=== PATIENT | female | born 1940 | race Caucasian/White ===

== ENCOUNTER 2023-05-19 16:05 | Inpatient (IN) | payer OTHER, MEDICARE ==
[2023-05-19 18:16] LABS: BASO % 0.9 % (0-2.0); EOS % 2.7 % (0-4.5); HEMATOCRIT 38.5 % (32.4-45.2); HEMOGLOBIN 13.2 GM/dL (10.7-15.3); MCH 30.1 pg (25.7-33.7); MCHC 34.4 g/dl (32.0-36.0); MEAN CELL VOLUME 87.4 fl (80-96); MEAN PLT VOLUME 9.7 fl (7.5-11.1); MONO % 9.3 % (3.8-10.2); NEUT % 73.1 % (42.8-82.8); PLATELET COUNT 211 10^3/uL (134-434); RDW 14.2 % (11.6-15.6); WHITE BLOOD COUNT 8.7 K/mm3 (4.0-10.0)
[2023-05-19 18:26] LABS: ACTIVATED PTT 33.2 SECONDS (25.2-36.5)
[2023-05-19 18:32] LABS: POTASSIUM 3.7 mmol/L (3.5-5.1)
[2023-05-19 18:34] LABS: BLOOD UREA NITROGEN 19.8 mg/dL (7-18); CALCIUM 9.4 mg/dL (8.5-10.1)
[2023-05-19 18:35] LABS: ALBUMIN 3.9 g/dl (3.4-5.0)
[2023-05-19 18:38] LABS: CREATININE 0.9 mg/dL (0.55-1.3)
[2023-05-19 18:39] LABS: BILIRUBIN,TOTAL 0.9 mg/dL (0.2-1); TOT PROT 6.8 g/dl (6.4-8.2)
[2023-05-19 18:40] LABS: INR 1.05 (0.83-1.09); PROTHROMBIN TIME (PATIENT) 12.2 SEC (9.7-13.0)
[2023-05-19] MEDS ORDERED: ACETAMINOPHEN 325 MG TABLET (FP) PO PRN (19:45)
[2023-05-19] MEDS ORDERED: DEXAMETHASONE SOD PHOSPHATE 4 MG/1 ML VIAL ONE (20:07)
[2023-05-19] MEDS: DEXAMETHASONE SOD PHOSPHATE 4 MG/1 ML VIAL IVPUSH SCH (21:02)
[2023-05-19] MEDS ORDERED: ROSUVASTATIN CA 5 MG TABLET ONE (21:47)
[2023-05-19] MEDS ORDERED: CARVEDILOL 12.5 MG TABLET (FP) ONE (21:48)
[2023-05-19] MEDS: CARVEDILOL 25 MG TABLET (FP) PO SCH (21:59)
[2023-05-19] MEDS: ROSUVASTATIN CA 10 MG TABLET PO SCH (21:59)
[2023-05-19] MEDS: INSULIN SLIDING SCALE (NOVOLOG) 1 VIAL SQ SCH (22:11)
[2023-05-20] MEDS ORDERED: DEXAMETHASONE SOD PHOSPHATE 4 MG/1 ML VIAL ONE ×2 (02:00→10:17)
[2023-05-20] MEDS: DEXAMETHASONE SOD PHOSPHATE 4 MG/1 ML VIAL IVPUSH SCH ×3 (02:08→18:30)
[2023-05-20] MEDS: INSULIN SLIDING SCALE (NOVOLOG) 1 VIAL SQ SCH ×4 (07:25→21:56)
[2023-05-20 07:52] LABS: POTASSIUM 4.2 mmol/L (3.5-5.1)
[2023-05-20 07:53] LABS: CALCIUM 9.1 mg/dL (8.5-10.1)
[2023-05-20 07:54] LABS: BLOOD UREA NITROGEN 16.5 mg/dL (7-18)
[2023-05-20 07:57] LABS: CREATININE 0.8 mg/dL (0.55-1.3)
[2023-05-20] MEDS ORDERED: PANTOPRAZOLE 40 MG TABLET PO SCH (10:00)
[2023-05-20] MEDS ORDERED: CARVEDILOL 12.5 MG TABLET (FP) ONE ×2 (10:16→21:48)
[2023-05-20] MEDS ORDERED: PANTOPRAZOLE 40 MG TABLET PO ONE (10:16)
[2023-05-20] MEDS: CARVEDILOL 25 MG TABLET (FP) PO SCH ×2 (10:17→21:56)
[2023-05-20] MEDS ORDERED: ACETAMINOPHEN 325 MG TABLET (FP) ONE (16:37)
[2023-05-20] MEDS ORDERED: ROSUVASTATIN CA 5 MG TABLET ONE (21:48)
[2023-05-20] MEDS: ROSUVASTATIN CA 10 MG TABLET PO SCH (21:56)
[2023-05-21] MEDS ORDERED: DEXAMETHASONE SOD PHOSPHATE 4 MG/1 ML VIAL ONE (02:09)
[2023-05-21] MEDS: DEXAMETHASONE SOD PHOSPHATE 4 MG/1 ML VIAL IVPUSH SCH ×3 (02:17→17:45)
[2023-05-21 06:17] VITALS: BMI 30.9
[2023-05-21] MEDS: INSULIN SLIDING SCALE (NOVOLOG) 1 VIAL SQ SCH ×4 (06:19→22:45)
[2023-05-21] MEDS: PANTOPRAZOLE 40 MG TABLET PO SCH (06:43)
[2023-05-21] MEDS ORDERED: CARVEDILOL 12.5 MG TABLET (FP) PO SCH (10:00)
[2023-05-21] MEDS ORDERED: FLU VACCINE (FLULAVAL) PF 60 MCG/0.5 ML SYRINGE 2023-2024 IM ONE (10:00)
[2023-05-21 15:35] VITALS: RESP 20
[2023-05-21] MEDS ORDERED: ARTIFICIAL TEARS (POLYVINYL ALCOHOL) OPTH DROPS OU PRN (22:32)
[2023-05-21] MEDS: CARVEDILOL 25 MG TABLET (FP) PO SCH (22:38)
[2023-05-21] MEDS: ASPIRIN COATED 81 MG TABLET.EC PO SCH (22:38)
[2023-05-21] MEDS: DEXAMETHASONE 4 MG TABLET (FP) PO SCH (22:38)
[2023-05-21] MEDS: ROSUVASTATIN CA 10 MG TABLET PO SCH (22:38)
[2023-05-22] MEDS: INSULIN SLIDING SCALE (NOVOLOG) 1 VIAL SQ SCH ×2 (06:35→11:43)
[2023-05-22] MEDS: PANTOPRAZOLE 40 MG TABLET PO SCH (06:40)
[2023-05-22 06:49] LABS: BASO % 0.6 % (0-2.0); HEMATOCRIT 37.2 % (32.4-45.2); HEMOGLOBIN 12.4 GM/dL (10.7-15.3); LYMPH % 7.6 % (8-40); MCH 29.5 pg (25.7-33.7); MCHC 33.3 g/dl (32.0-36.0); MEAN CELL VOLUME 88.4 fl (80-96); MEAN PLT VOLUME 9.8 fl (7.5-11.1); MONO % 6.2 % (3.8-10.2); NEUT % 85.6 % (42.8-82.8); PLATELET COUNT 198 10^3/uL (134-434); RBC 4.21 M/mm3 (3.60-5.2); RDW 13.7 % (11.6-15.6); WHITE BLOOD COUNT 9.2 K/mm3 (4.0-10.0)
[2023-05-22 07:08] LABS: POTASSIUM 4.2 mmol/L (3.5-5.1)
[2023-05-22 07:12] LABS: ALBUMIN 3.3 g/dl (3.4-5.0)
[2023-05-22 07:13] LABS: BLOOD UREA NITROGEN 23.5 mg/dL (7-18)
[2023-05-22 07:15] LABS: CREATININE 0.9 mg/dL (0.55-1.3)
[2023-05-22 07:17] LABS: BILIRUBIN,TOTAL 0.6 mg/dL (0.2-1); TOT PROT 6.2 g/dl (6.4-8.2)
[2023-05-22 08:26] VITALS: BP 146/92; PULSE 77; TEMP 98
[2023-05-22] MEDS: CARVEDILOL 25 MG TABLET (FP) PO SCH (11:11)
[2023-05-22] MEDS: DEXAMETHASONE 4 MG TABLET (FP) PO SCH (11:11)
[2023-05-22] MEDS: ASPIRIN COATED 81 MG TABLET.EC PO SCH (11:11)
== END 2023-05-22 13:55 | disposition home or self-care (01) | DRG 69 ==
LOC: JER 16:05 → JERBED 16:44 → J4W 05-21 06:27
PROVIDERS: ADMIT Specialist; ATTEND Specialist
DX: G45.9 Transient cerebral ischemic attack, unspecified (principal); I10 Essential (primary) hypertension; E78.5 Hyperlipidemia, unspecified; E21.3 Hyperparathyroidism, unspecified
CPT/HCPCS: 0241U-QW; 36415; 70450-TC; 70490-TC; 70551-TC; 71045-TC-FY; 71250-TC; 74176-TC; 80048; 80053; 80061; 82962; 83036; 84443; 84484; 85025; 85610; 85730; 86850; 86900; 86901; 90686; 93005; 93010; 93880-TC; 99285-25; G0008